=== PATIENT | male | born 1975 | race Caucasian/White ===

== ENCOUNTER 2022-05-05 14:59 | Emergency (ER) | payer OTHER ==
[~2022-05-05] VITALS: Ht 190.5 cm; Wt 93.2 kg
[2022-05-05 17:37] LABS: BASO # 0.1 10^3/uL (0.0-0.2); BASO % 1.9 % (0.0-1.0); EOS # 0.1 10^3/uL (0.0-0.5); HEMOGLOBIN 12.4 g/dl (13.5-17.5); LYMPH # 2.5 10^3/uL (1.5-5.0); MEAN CORPUSCULAR HEMOGLOBIN 27.4 pg (27.0-33.0); MEAN CORPUSCULAR HGB CONC 32.6 g/dl (32.0-36.5); MEAN CORPUSCULAR VOLUME 83.9 fl (80.0-96.0); MONO # 0.4 10^3/uL (0.0-0.8); MONO % 8.1 % (2.0-8.0); NEUTROPHILS # 1.6 10^3/uL (1.5-8.5); PLATELET COUNT, AUTOMATED 199 10^3/uL (150-450); RED BLOOD COUNT 4.53 10^6/uL (4.30-6.10); WHITE BLOOD COUNT 4.7 10^3/uL (4.0-10.0)
[2022-05-05 18:02] LABS: ALBUMIN 3.8 GM/DL (3.2-5.2); BILIRUBIN,DIRECT 0.1 MG/DL (0.0-0.2); BILIRUBIN,TOTAL 0.3 MG/DL (0.2-1.0); TOTAL PROTEIN 7.6 GM/DL (6.4-8.2)
[2022-05-05] MEDS ORDERED: KETOROLAC 30 MG/ML 1ML VIAL IV ONE (18:20)
[2022-05-05 19:07] VITALS: BP 124/72
== END 2022-05-05 19:07 | disposition home or self-care (01) ==
LOC: M ED 14:59
DX: K42.9 Umbilical hernia without obstruction or gangrene (principal); R74.01 Elevation of levels of liver transaminase levels; Z88.0 Allergy status to penicillin
CPT/HCPCS: 76705; 80076; 83605; 83690; 85025; 96374; 99284; J1885